=== PATIENT | male | born 1980 | race Caucasian/White ===

== ENCOUNTER → 2018-01-25 | Outpatient (REF) ==
[~2018-01-25] MED LIST: ALBU8.5H IH; ALBU8.5H12 IH; ALLO-119 PO; CETI10CA8 PO; INDO-1 PO; MULT-865 PO
== END ==
LOC: AUD 08:30
PROVIDERS: ATTEND Physician Assistant Medical
DX: Z01.10 Encounter for examination of ears and hearing without abnormal findings (principal)
CPT/HCPCS: 92552

== ENCOUNTER → 2019-01-24 | Outpatient (REF) ==
[~2019-01-24] MED LIST changes: -INDO-1 PO; +INDO-21 PO
== END ==
LOC: AUD 09:20
PROVIDERS: ATTEND Physician Assistant Medical
DX: Z01.12 Encounter for hearing conservation and treatment (principal)
CPT/HCPCS: 92552